=== PATIENT | female | born 1975 | race Caucasian/White ===

== ENCOUNTER 2019-02-26 15:22 | Emergency (ER) | payer OTHER ==
[~2019-02-26] VITALS: Ht 170.2 cm; Wt 68.0 kg
[2019-02-26 15:23] VITALS: BP 142/91; Ht 170.2 cm; Wt 68.0 kg
== END 2019-02-26 15:52 | disposition other institution (70) ==
LOC: ED 15:22
DX: Z02.89 Encounter for other administrative examinations (principal)